=== PATIENT | female | born 1975 ===

== ENCOUNTER 2021-12-07 13:51 | Outpatient (CLI) | payer MEDICAID ==
--- NOTE | 2021-12-08 09:08 | Mammography Report ---
BILATERAL DIGITAL SCREENING MAMMOGRAM 3D/2D: 12/07/2021 CLINICAL: Baseline exam. Routine screening. No prior exams were available for comparison. There are scattered areas of fibroglandular density in both breasts (category b / 25%-50% glandular t issue). No significant masses, calcifications, or other findings are seen in either breast. IMPRESSION: NEGATIVE There is no mammographic evidence of malignancy. A 1 year screening mammogram is recommended. Based on the Tyrer Cuzick model (a risk assessment model) the patients lifetime risk is 6.3% and her 10 year risk is 1.2%. According to the ACR, ACS, and NCCN guidelines, an annual breast MRI exam amie g with mammogram is recommended if the patients lifetime risk is 20% or greater. This exam was interpreted at Station ID: [id number]. NOTE: For mammograms, a report in lay terms will be sent to the patient. Approximately 15% of breast malignancies will not be visualized mammographically. In the management of a palpable breast mass, a negative mammogram must not discourage biopsy of a clinically suspicious lesion. Electronically Signed By: Dong Bustamante M.D. slc/penrad:12/07/2021 17:24:40 ACR BI-RADS Category 1: Negative 3341F PARENCHYMAL PATTERN: (A) - The breast(s) demonstrate(s) scattered fibroglandular densities. BI-RADS CATEGORY: (1) - 1 RECOMMENDATION: (ANNUAL) - Recommend routine annual screening mammography. [id number] 1 year screening LATERALITY: (B)
== END 2021-12-07 13:52 | disposition home or self-care (01) ==
LOC: DI.N 13:51
PROVIDERS: ATTEND Physician Assistant
DX: Z12.31 Encounter for screening mammogram for malignant neoplasm of breast (principal)

== ENCOUNTER 2022-04-12 12:34 | Outpatient (CLI) | payer MEDICAID ==
[2022-04-12 18:43] LABS: CREATININE,URINE 147.6 mg/dL; MICROALBUM/CREATININE RATIO,UR 83.3 ug/mg (<30.0); MICROALBUMIN,URINE 12.3 mg/dL (0-300.0)
== END 2022-04-12 23:59 | disposition home or self-care (01) ==
LOC: LAB 12:34
PROVIDERS: ATTEND Physician Assistant
DX: R80.9 Proteinuria, unspecified (principal)
CPT/HCPCS: 82043; 82570

== ENCOUNTER 2022-06-21 14:00 | Outpatient (CLI) | payer MEDICAID ==
[2022-06-21 17:47] LABS: BASOPHILS # (AUTO) 0.1 10^3/uL (0.0-0.1); BASOPHILS % (AUTO) 0.8 %; EOSINOPHILS # (AUTO) 0.3 10^3/uL (0.0-0.7); EOSINOPHILS % (AUTO) 2.8 %; HCT - HEMATOCRIT 46.5 % (37.0-47.0); HGB - HEMOGLOBIN 14.7 g/dL (12.0-16.0); LYMPHOCYTES # (AUTO) 3.2 10^3/uL (1.5-3.5); LYMPHOCYTES % (AUTO) 33.9 %; MEAN CORPUSCULAR HEMOGLOBIN 28.4 pg (27.0-31.0); MEAN CORPUSCULAR HGB CONC 31.6 g/dL (32.0-36.0); MEAN CORPUSCULAR VOLUME 89.8 fL (81.0-99.0); MEAN PLATELET VOLUME 10.5 fL (7.9-10.8); MONOCYTES # (AUTO) 0.8 10^3/uL (0.0-1.0); MONOCYTES % (AUTO) 8.7 %; NEUTROPHILS # (AUTO) 5.1 10^3/uL (1.5-6.6); NEUTROPHILS % (AUTO) 53.6 %; PLT - PLATELET COUNT 324 10^3/uL (130-450); RED BLOOD COUNT 5.18 10^6/uL (4.20-5.40); RED CELL DISTRIBUTION WIDTH 13.7 % (12.0-15.0); WHITE BLOOD COUNT 9.5 x10^3/uL (4.8-10.8)
[2022-06-21 18:19] LABS: ALBUMIN 3.6 g/dL (3.2-5.5); ALBUMIN/GLOBULIN RATIO 0.9 (1.0-2.2); ALKALINE PHOSPHATASE 77 IU/L (42-121); ALT ALANINE AMINOTRANSFERASE 20 IU/L (10-60); AST ASPARTATE AMINOTRANSFERASE 20 IU/L (10-42); BILIRUBIN,TOTAL 0.7 mg/dL (0.2-1.0); BUN - BLOOD UREA NITROGEN 16 mg/dL (6-20); CARBON DIOXIDE - CO2 27 mmol/L (21-32); CHLORIDE 103 mmol/L (101-111); CHOL/HDL RATIO 3.8 (<4.4); CHOLESTEROL 208 mg/dL; CREATININE 0.9 mg/dL (0.4-1.0); GFR - MDRD 67 (>89); GLUCOSE 107 mg/dL (70-100); HDL CHOLESTEROL 55 mg/dL; LDL CHOLESTEROL,CALCULATED 122 mg/dL; LDL/HDL RATIO 2.2 (<4.4); POTASSIUM 4.2 mmol/L (3.5-5.0); SODIUM 136 mmol/L (135-145); TOTAL PROTEIN 7.5 g/dL (6.7-8.2); TRIGLYCERIDES 155 mg/dL; VLDL CHOLESTEROL 31 mg/dL
[2022-06-21 18:26] LABS: THYROID STIMULATING HORMONE 1.19 uIU/mL (0.34-5.60)
[2022-06-21 18:54] LABS: FOLLICLE STIMULATING HORMONE 13.42 mIU/mL
[2022-06-21 20:41] LABS: ESTIMATED AVERAGE GLUCOSE 126 mg/dL (70-100)
== END 2022-06-21 14:01 | disposition home or self-care (01) ==
LOC: LAB.N 14:00
PROVIDERS: ATTEND Physician Assistant
DX: I10 Essential (primary) hypertension (principal); R60.0 Localized edema; Z13.220 Encounter for screening for lipoid disorders; N92.6 Irregular menstruation, unspecified; R80.9 Proteinuria, unspecified
CPT/HCPCS: 36415; 80053; 80061; 82043; 82570; 83001; 83036; 83721; 84443; 85025

== ENCOUNTER 2022-06-23 08:00 | Outpatient (CLI) | payer MEDICAID ==
[2022-06-23 18:19] LABS: CREATININE,URINE 115.8 mg/dL; MICROALBUM/CREATININE RATIO,UR 69.9 ug/mg (<30.0); MICROALBUMIN,URINE 8.1 mg/dL (0-300.0)
== END 2022-06-23 23:59 | disposition home or self-care (01) ==
LOC: LAB.R 08:00
PROVIDERS: ATTEND Physician Assistant
DX: R80.9 Proteinuria, unspecified (principal)
CPT/HCPCS: 82043; 82570

== ENCOUNTER 2022-07-05 21:49 | Outpatient (CLI) | payer MEDICAID ==
--- NOTE | 2022-07-06 21:21 | Ultrasound Report ---
PROCEDURE: Retroperitoneal INDICATIONS: PROTEINURIA TECHNIQUE: Real-time scanning was performed of the retroperitoneal organs, with image documentation. COMPARISON: None. FINDINGS: Kidneys: Kidneys are normal in size. Right kidney measures 10.3 cm long; left kidney measures 11.0 cm long. Right renal cortical thickness is 0.9 cm; left renal cortical thickness is 1.6 cm. No neph rolithiasis. Mild appearance of increased renal cortical echogenicity within the kidneys bilaterally. Minimal prominence of the renal collecting system bilaterally. Bladder: Pre-void bladder volume is 106 mL. Post-void residual is 0 mL. Pre-void images demonstrat e no intraluminal masses or stones. On pre-void images, mary ann ureteral jets are noted with color Dopp ler interrogation. (Of note, ureteral jets may not be detectable in up to 25% of cases due to insuff icient differences in specific gravity between ureteral and bladder urine). Miscellaneous: No free abdominal fluid. IMPRESSION: Echogenic renal echotexture which is overall nonspecific but can be seen with medical renal disease. Mild prominence of the renal collecting systems bilaterally without visualized source of obstruction. Reviewed by: Chen Christianson MD on 07/06/2022 9:19 PM PDT Approved by: Chen Christianson MD on 07/06/2022 9:19 PM PDT Station ID: [id number]
== END 2022-07-05 21:50 | disposition home or self-care (01) ==
LOC: DI 21:49
PROVIDERS: ATTEND Physician Assistant
DX: R80.9 Proteinuria, unspecified (principal)

== ENCOUNTER 2022-07-27 10:55 | Outpatient (CLI) | payer MEDICAID ==
--- NOTE | 2022-07-27 16:44 | Ultrasound Report ---
PROCEDURE: Duplex Lwr Ext Arterial Bilat INDICATIONS: BILATERAL LEG EDEMA TECHNIQUE: Color and pulse Doppler interrogation was performed of both lower extremity arterial systems, with im age documentation. COMPARISON: None FINDINGS: Right lower extremity: Common femoral artery: 120 cm/sec, with triphasic flow. Deep femoral artery: 63 cm/sec, with triphasic flow. Proximal superficial femoral artery: 117 cm/sec, with triphasic flow. Mid superficial femoral artery: 125 cm/sec, with triphasic flow. Distal superficial femoral artery: 129 cm/sec, with triphasic flow. Popliteal artery: 94 cm/sec, with triphasic flow. Posterior tibial artery: 21 cm/sec, with triphasic flow. Anterior tibial artery/dorsalis pedis: 72 cm/sec, with triphasic flow. Brar-scale imaging description: Mild diffuse plaque Left lower extremity: Common femoral artery: 181 cm/sec, with triphasic flow. Deep femoral artery: 55 cm/sec, with triphasic flow. Proximal superficial femoral artery: 145 cm/sec, with triphasic flow. Mid superficial femoral artery: 138 cm/sec, with triphasic flow. Distal superficial femoral artery: 81 cm/sec, with triphasic flow. Popliteal artery: 111 cm/sec, with triphasic flow. Posterior tibial artery: 94 cm/sec, with triphasic flow. Anterior tibial artery/dorsalis pedis: 92 cm/sec, with triphasic flow. Brar-scale imaging description: Mild diffuse plaque IMPRESSION: No evidence of arterial insufficiency to the bilateral lower extremities. Reviewed by: Renae Clinton MD on 07/27/2022 4:42 PM PDT Approved by: Renae Clinton MD on 07/27/2022 4:42 PM PDT Station ID: [id number]
--- NOTE | 2022-07-27 16:44 | Ultrasound Report ---
PROCEDURE: Duplex Ext Veins Bilateral INDICATIONS: FREDDY Ashton TECHNIQUE: Real-time imaging, as well as color and pulse Doppler interrogation, were performed of the deep veins of both legs from the inguinal ligament to the popliteal fossa. COMPARISON: None FINDINGS: The deep veins are normally compressible, and free of intraluminal thrombus. Color and pu lse Doppler demonstrate normal phasic intravascular flow. There is normal augmentation response to d istal compression maneuver. IMPRESSION: No evidence of bilateral lower extremity DVT. Reviewed by: Renae Clinton MD on 07/27/2022 4:43 PM PDT Approved by: Renae Clinton MD on 07/27/2022 4:43 PM PDT Station ID: [id number]
== END 2022-07-27 10:56 | disposition home or self-care (01) ==
LOC: DI 10:55
PROVIDERS: ATTEND Physician Assistant
DX: R60.0 Localized edema (principal)
CPT/HCPCS: 93925; 93970

== ENCOUNTER 2022-07-29 05:37 | Emergency (ER) | payer MEDICAID ==
[2022-07-29 06:33] VITALS: BP 164/90
--- NOTE | 2022-07-29 07:17 | ED Physician Documentation ---
PD HPI BACK PAIN - Stated complaint Stated Complaint: BACK PX/MED REFILL - Chief complaint Chief Complaint: Back Pain - History obtained from History obtained from: Patient - History of Present Illness Timing - onset: How many days ago (2) Timing - duration: Days (2) Timing - details: Gradual onset, Still present (no noted injury. Has been doing some lifting and bending. Onset of right low back pain and tightness. no fall nor abrupt pain. No radiation to legs. No numbness nor weakness.) Review of Systems Constitutional: denies: Fever, Chills GI: denies: Abdominal Pain, Abdominal Swelling, Vomiting, Diarrhea Skin: denies: Rash, Lesions Musculoskeletal: reports: Back pain. 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: LEEP (Cervical surgery) - Present Medications Home Medications: Ambulatory Orders Medication Instructions Recorded Confirmed Amlodipine Besylate [Norvasc] 10 mg ORAL DAILY 07/18/22 07/18/22 Losartan [Cozaar] 50 mg PO DAILY 07/18/22 07/18/22 Acetaminophen [Acetaminophen Extra 500 mg PO QID PRN #50 tablet 07/29/22 Strength] dexAMETHasone [Decadron] 4 mg PO DAILY #5 tablet 07/29/22 methocarbamoL [Robaxin] 500 mg PO Q6H PRN #30 tablet 07/29/22 - Allergies Allergies/Adverse Reactions: Allergies Allergy/AdvReac Type Severity Reaction Status Date / Time acetaminophen [From Vicodin] AdvReac Mild Nausea Verified 07/18/22 13:40 hydrocodone [From Vicodin] AdvReac Mild Nausea Verified 07/18/22 13:40 PD ED PE NORMAL - Vitals Vital signs reviewed: Yes - General General: Alert and oriented X 3, No acute distress, Well developed/nourished - Cardiac Cardiac: RRR, No murmur - Respiratory Respiratory: Clear bilaterally - Abdomen Abdomen: Soft, Non tender - Back Back: No CVA TTP, No spinal TTP, Other (muscular tender right lower back mainly. ) - Derm Derm: Normal color, Warm and dry, No rash - Neuro Neuro: No motor deficit, No sensory deficit, Other (normal patellar reflexes. ) Results - Vitals Vitals: Vital Signs - 24 hr 07/29/22 06:26 Temperature 36.4 C L Heart Rate 95 Respiratory 16 Rate Blood Pressure 164/90 H O2 Saturation 99 Oxygen O2 Source Room air PD Medical Decision Making - ED course Complexity details: reviewed old records, considered differential (she is concerned that her BP is high in triage. Could not find her usual meds at home. Otherwise here for back pain. No red flags on history/exam to suggest need for urgent testing. ), d/w patient Departure - Departure Disposition: Home, Self Care Clinical Impression: Hypertension, Acute low back pain Condition: Stable Record reviewed to determine appropriate education?: Yes Instructions: ED Low Back Pain Injury Follow-Up: Gisele Molina PA [Provider Admit Priv/Credential] - Prescriptions: Acetaminophen [Acetaminophen Extra Strength] 500 mg PO QID PRN #50 tablet PRN Reason: Pain dexAMETHasone [Decadron] 4 mg PO DAILY #5 tablet methocarbamoL [Robaxin] 500 mg PO Q6H PRN #30 tablet PRN Reason: Spasms Comments: Low back pain is relatively common in we will also commonly go away with short- term treatments so we tend not to do too much work-up unless it persists. Will commonly treat with combination of anti-inflammatories and muscle relaxants and add in Tylenol. You can also use heat stretching chiropractic and massage. I sent prescriptions to [facility] for Decadron steroid anti-inflammatory to reduce NSAIDs for now. Once done with the Decadron you can add some Aleve or ibuprofen at lower doses. For now add Robaxin muscle relaxant and then acetaminophen 4 times daily to help with the pain as well. I sent these prescriptions to [facility] pharmacy. By your pharmacy log, your losartan dose is 50 mg and amlodipine is 10 mg. Call the pharmacy for refills if you are unable to find your medications at home. Discharge Date/Time: 07/29/22 08:07
[2022-07-29] MEDS ORDERED: methocarbamoL 500 MG TABLET PO STA (07:43)
[2022-07-29] MEDS ORDERED: DEXAMETHASONE 10 MG/ML VIAL PO STA (07:43)
[2022-07-29] MEDS ORDERED: CHERRY SYRUP 10 ML UDC PO ONE (07:43)
[2022-07-29] MEDS ORDERED: LOSARTAN 50 MG TABLET PO STA (07:43)
[2022-07-29] MEDS ORDERED: ACETAMINOPHEN 325 MG TABLET PO STA (07:43)
== END 2022-07-29 08:07 | disposition home or self-care (01) ==
LOC: ED 05:37
DX: M54.50 Low back pain, unspecified (principal); I10 Essential (primary) hypertension; Z79.899 Other long term (current) drug therapy
CPT/HCPCS: 99283; A9270

== ENCOUNTER 2022-12-19 08:00 | Outpatient (CLI) | payer MEDICAID | END 2022-12-19 23:59 | disposition home or self-care (01) | LOC: LAB.N 08:00 | PROVIDERS: ATTEND Registered Nurse | DX: L03.90 Cellulitis, unspecified (principal); B07.9 Viral wart, unspecified | CPT/HCPCS: 87070; 87205 ==

== ENCOUNTER 2022-12-19 08:00 | Outpatient (CLI) | payer MEDICAID | END 2022-12-19 23:59 | disposition home or self-care (01) | LOC: LAB.N 08:00 | PROVIDERS: ATTEND Registered Nurse | DX: L03.90 Cellulitis, unspecified (principal); B07.9 Viral wart, unspecified | CPT/HCPCS: 87070; 87205; 87252 ==

== ENCOUNTER 2023-02-10 14:54 | Outpatient (CLI) | payer MEDICAID ==
[2023-02-11 19:44] LABS: CREATININE,URINE 109.5 mg/dL; MICROALBUM/CREATININE RATIO,UR 166.2 ug/mg (<30.0); MICROALBUMIN,URINE 18.2 mg/dL; PROTEIN/CREATININE RATIO,URINE 0.3 (<=0.2)
== END 2023-02-10 14:55 | disposition home or self-care (01) ==
LOC: LAB.N 14:54
PROVIDERS: ATTEND Internal Medicine Nephrology
DX: R80.9 Proteinuria, unspecified (principal)
CPT/HCPCS: 82043; 82570; 84156

== ENCOUNTER 2023-02-28 08:00 | Outpatient (CLI) | payer MEDICAID ==
[2023-02-28 18:30] LABS: BILIRUBIN,URINE NEGATIVE (NEGATIVE); GLUCOSE, URINE (UA) NEGATIVE (NEGATIVE); KETONES,URINE (UA) NEGATIVE (NEGATIVE); LEUKOCYTE ESTERASE, URINE NEGATIVE (NEGATIVE); NITRITE,URINE NEGATIVE (NEGATIVE); OCCULT BLOOD,URINE LARGE (NEGATIVE); PROTEIN,URINE TRACE mg/dL (NEGATIVE); UROBILINOGEN,URINE 0.2 (NORMAL) E.U./dL (NORMAL)
[2023-02-28 18:40] LABS: CLARITY,URINE HAZY (CLEAR)
[2023-02-28 18:57] LABS: BACTERIA,URINE Few /HPF (None Seen); CRYSTALS,URINE 26-50 Ca Oxalate /LPF; SQUAMOUS EPITHELIAL CELL,UR MOD Squamous (<= Few)
== END 2023-02-28 23:59 | disposition home or self-care (01) ==
LOC: LAB 08:00
PROVIDERS: ATTEND Physician Assistant
DX: R35.0 Frequency of micturition (principal)
CPT/HCPCS: 81001; 87086

== ENCOUNTER 2023-04-26 16:07 | Outpatient (CLI) | payer MEDICAID ==
[2023-04-26 17:41] LABS: BASOPHILS % (AUTO) 0.6 %; EOSINOPHILS # (AUTO) 0.2 10^3/uL (0.0-0.7); EOSINOPHILS % (AUTO) 3.5 %; HCT - HEMATOCRIT 48.7 % (37.0-47.0); HGB - HEMOGLOBIN 15.2 g/dL (12.0-16.0); LYMPHOCYTES # (AUTO) 2.5 10^3/uL (1.5-3.5); LYMPHOCYTES % (AUTO) 38.2 %; MEAN CORPUSCULAR HEMOGLOBIN 28.5 pg (27.0-31.0); MEAN CORPUSCULAR HGB CONC 31.2 g/dL (32.0-36.0); MEAN CORPUSCULAR VOLUME 91.4 fL (81.0-99.0); MEAN PLATELET VOLUME 10.5 fL (7.9-10.8); MONOCYTES # (AUTO) 1.1 10^3/uL (0.0-1.0); NEUTROPHILS # (AUTO) 2.7 10^3/uL (1.5-6.6); NEUTROPHILS % (AUTO) 41.4 %; PLT - PLATELET COUNT 280 10^3/uL (130-450); RED BLOOD COUNT 5.33 10^6/uL (4.20-5.40); RED CELL DISTRIBUTION WIDTH 13.6 % (12.0-15.0); WHITE BLOOD COUNT 6.6 x10^3/uL (4.8-10.8)
[2023-04-26 18:07] LABS: ALBUMIN 3.9 g/dL (3.2-5.5); ALBUMIN/GLOBULIN RATIO 1.1 (1.0-2.2); ALKALINE PHOSPHATASE 58 IU/L (42-121); ALT ALANINE AMINOTRANSFERASE 15 IU/L (10-60); AST ASPARTATE AMINOTRANSFERASE 19 IU/L (10-42); BILIRUBIN,TOTAL 0.4 mg/dL (0.2-1.0); BUN - BLOOD UREA NITROGEN 12 mg/dL (6-20); CALCIUM 9.3 mg/dL (8.5-10.3); CARBON DIOXIDE - CO2 30 mmol/L (21-32); CHLORIDE 102 mmol/L (101-111); CHOL/HDL RATIO 3.3 (<4.4); CHOLESTEROL 154 mg/dL; GFR - MDRD 59 (>89); GLUCOSE 96 mg/dL (74-104); HDL CHOLESTEROL 47 mg/dL; LDL CHOLESTEROL,CALCULATED 94 mg/dL; SODIUM 136 mmol/L (135-145); TOTAL PROTEIN 7.3 g/dL (6.4-8.9); TRIGLYCERIDES 67 mg/dL (48-352); VLDL CHOLESTEROL 13 mg/dL
[2023-04-26 21:38] LABS: BILIRUBIN,URINE NEGATIVE (NEGATIVE); GLUCOSE, URINE (UA) NEGATIVE (NEGATIVE); KETONES,URINE (UA) NEGATIVE (NEGATIVE); LEUKOCYTE ESTERASE, URINE NEGATIVE (NEGATIVE); NITRITE,URINE NEGATIVE (NEGATIVE); OCCULT BLOOD,URINE MODERATE (NEGATIVE); PROTEIN,URINE NEGATIVE (NEGATIVE); UROBILINOGEN,URINE 0.2 (NORMAL) E.U./dL (NORMAL)
[2023-04-26 22:07] LABS: BACTERIA,URINE None Seen /HPF (None Seen); CLARITY,URINE CLEAR (CLEAR); SQUAMOUS EPITHELIAL CELL,UR MOD Squamous (<= Few); WBC,URINE 0-3 /HPF (0-5)
[2023-04-27 00:49] LABS: ESTIMATED AVERAGE GLUCOSE 128 mg/dL (70-100); HEMOGLOBIN A1c% 6.1 % (4.27-6.07)
== END 2023-04-26 16:08 | disposition home or self-care (01) ==
LOC: LAB.N 16:07
PROVIDERS: ATTEND Physician Assistant
DX: I10 Essential (primary) hypertension (principal); R35.0 Frequency of micturition; R73.01 Impaired fasting glucose
CPT/HCPCS: 36415; 80053; 80061; 81001; 83036; 83721; 84443; 85025; 87086

== ENCOUNTER 2023-07-13 09:41 | Day surgery (SDC) | payer MEDICAID ==
[2023-07-13] MEDS: LACTATED RINGERS 1,000 ML IV ONE (09:59)
[2023-07-13 10:01] LABS: HCG UR QUAL NEGATIVE
[2023-07-13 10:45] LABS: BASOPHILS # (AUTO) 0.1 10^3/uL (0.0-0.1); EOSINOPHILS # (AUTO) 0.3 10^3/uL (0.0-0.7); EOSINOPHILS % (AUTO) 3.1 %; HCT - HEMATOCRIT 43.3 % (37.0-47.0); HGB - HEMOGLOBIN 13.6 g/dL (12.0-16.0); LYMPHOCYTES # (AUTO) 3.1 10^3/uL (1.5-3.5); LYMPHOCYTES % (AUTO) 34.8 %; MEAN CORPUSCULAR HEMOGLOBIN 28.5 pg (27.0-31.0); MEAN CORPUSCULAR HGB CONC 31.4 g/dL (32.0-36.0); MEAN CORPUSCULAR VOLUME 90.8 fL (81.0-99.0); MEAN PLATELET VOLUME 10.1 fL (7.9-10.8); MONOCYTES # (AUTO) 0.8 10^3/uL (0.0-1.0); MONOCYTES % (AUTO) 9.2 %; NEUTROPHILS # (AUTO) 4.6 10^3/uL (1.5-6.6); NEUTROPHILS % (AUTO) 51.7 %; PLT - PLATELET COUNT 281 10^3/uL (130-450); RED BLOOD COUNT 4.77 10^6/uL (4.20-5.40); RED CELL DISTRIBUTION WIDTH 13.4 % (12.0-15.0); WHITE BLOOD COUNT 8.9 x10^3/uL (4.8-10.8)
--- NOTE | 2023-07-13 11:06 | ANESTHESIA ---
Pre-Anesthesia VS, & Labs - Diagnosis High grade squamous epithelial CIN3 - Procedure LEEP Vital Signs: Temp Pulse Resp BP Pulse Ox O2 Flow Rate 36.7 C 84 18 160/98 H 97 07/13/23 10:08 07/13/23 10:08 07/13/23 10:08 07/13/23 10:08 07/13/23 10:08 Height: 5 ft 4 in Weight (kg): 100.3 kg Body Mass Index: 37.9 BMI Classification: Obese - NPO >8 hours - Is Patient ?: No - Lab Results Current Lab Results: Laboratory Tests 07/13/23 10:33: WBC 8.9, RBC 4.77, Hgb 13.6, Hct 43.3, MCV 90.8, MCH 28.5, MCHC 31.4 L, RDW 13.4, Plt Count 281, MPV 10.1, Neut # (Auto) 4.6, Lymph # (Auto) 3.1, Charlton # (Auto) 0.8, Eos # (Auto) 0.3, Baso # (Auto) 0.1, Absolute Nucleated RBC 0.00, Nucleated RBC % 0.0 Lab results reviewed: Yes Fish Bones: 07/13/23 10:33 Home Medications and Allergies Home Medications: Ambulatory Orders Albuterol Sulfate [Proair Digihaler] 90 mcg IH Q6HR PRN 07/04/23 Omeprazole 20 mg PO DAILY 07/04/23 Spironolactone [Aldactone] 25 mg PO DAILY 07/04/23 Venlafaxine ER [Effexor ER] 75 mg PO DAILY 07/04/23 Losartan [Cozaar] 50 mg PO DAILY 07/18/22 Albuterol Sulfate [Proair Digihaler] 90 mcg IH Q6HR PRN 07/04/23 Omeprazole 20 mg PO DAILY 07/04/23 Spironolactone [Aldactone] 25 mg PO DAILY 07/04/23 Venlafaxine ER [Effexor ER] 75 mg PO DAILY 07/04/23 Allergies/Adverse Reactions: Allergies Allergy/AdvReac Type Severity Reaction Status Date / Time hydrocodone [From Vicodin] AdvReac Mild Nausea Verified 07/13/23 10:15 Anes History & Medical History - Anesthetic History Anesthesia Complications: reports: No previous complications Family history of Anesthesia Complications: Denies Family history of Malignant Hyperthermia: Denies - Medical History Cardiovascular: reports: Hypertension Pulmonary: reports: Asthma, Sleep apnea Gastrointestinal: reports: GERD, Other Urinary: reports: Frequency Musculoskeletal: reports: Osteoarthritis, Chronic back pain Endocrine/Autoimmune: reports: None Skin: reports: None Smoking Status: Current every day smoker History of Cancer?: No - Surgical History General: reports: Appendectomy Gynecologic: reports: LEEP (Cervical surgery) Exam General: Alert, Oriented x3, Cooperative Dental: WNL Mouth Openin Fingerbreadth Neck Mobility: Reduced (stiff to left) Mallampati classification: II Thyromental Distance: 4-6 cm Respiratory: Rhonchi (expiritory L mid and lower lobes), Other (always has productive cough, worse with allergies right now, 98% on room air) Cardiovascular: Regular rate Neurological: Normal speech Mental/Cognitive Status: Alert/Oriented X3, Normal for patient Plan Anesthesia Type: General Consent for Procedure(s) Verified and Reviewed: Yes Code Status: Attempt Resuscitation ASA classification: 2-Mild systemic disease Is this case an emergency?: No
[2023-07-13] MEDS ORDERED: POTASSIUM IODIDE/IODINE 14 ML SOLUTION ONE (11:48)
[2023-07-13] MEDS ORDERED: BUPIVACAINE 0.5%-EPI 1:200000 PF 30 ML VIAL ONE (11:48)
[2023-07-13] MEDS ORDERED: PROPOFOL 500 MG/50 ML 500 MG/50 ML VIAL ONE (11:55)
[2023-07-13] MEDS ORDERED: fentaNYL 100 MCG/2 ML VIAL ONE (11:56)
[2023-07-13] MEDS ORDERED: MIDAZOLAM 2 MG/2 ML VIAL ONE (11:56)
[2023-07-13] MEDS ORDERED: LIDOCAINE-MPF 2% 5 ML VIAL ONE (11:56)
--- NOTE | 2023-07-13 12:25 | HISTORY & PHYSICAL EXAMINATION ---
History of Present Illness - History of Present Illness HPI Comment/Other: HPI: patient is a 48-year-old menopausal female presenting for LEEP 4C and three at 9 o'clock in [facility] at five talking to God. She has no new questions since I visit. All other symptoms reviewed and were negative except per HPI. PMH chronic low back pain hypertension abnormal Pap smear left meniscal tear PSH laparoscopic appendectomy SH currently every day smoker. One half pack per day. Denies alcohol and drug use Family History mother: coronary disease, lung disease father: coronary disease, CVA, lung cancer maternal aunt: breast cancer Allergies [place]: nausea Zoloft: worsened SI JASMINA inhibitor: cough Medications metformin 500 mg twice a day omeprazole 20 mg once a day venlafaxine 75 mg daily albuterol PRN losartan 100 mg once a day spironolactone 25 mg daily method carbamide 500 mg PRN Physical exam: General: Alert, oriented, no acute distress Head: Normal cephalic atraumatic Eyes: PERRLA, extraocular motions intact. Respiratory: Normal rate of respiration. No accessory muscle use, normal respiratory effort. Cardiovascular: Regular rate and rhythm Abdomen: Nontender, nondistended Extremities: Normal range of motion Neuro: Oriented x3. Normal movements Psych: Appropriate mood and affect. Normal judgment and insight Assessment and plan RASHARD 3: discussed the risk and benefits cultures of the leap in the OR. Patient has no questions and like to proceed. History - Past Medical History Cardiovascular: reports: Hypertension Respiratory: reports: Asthma, Sleep apnea Endocrine/Autoimmune: reports: None GI: reports: GERD, Other : reports: Frequency HEENT: reports: Other Psych: reports: Depression, Anxiety, Panic attacks, Claustrophobia Musculoskeletal: reports: Osteoarthritis, Chronic back pain Derm: reports: None MRSA Hx?: No - Past Surgical History General: reports: Appendectomy /CRYSTALIZER TENDER: reports: LEEP (Cervical surgery) Meds/Allgy - Home Medications Home Medications: Ambulatory Orders Medication Instructions Recorded Confirmed Losartan [Cozaar] 50 mg PO DAILY 07/18/22 07/13/23 Acetaminophen [Acetaminophen Extra 500 mg PO QID PRN #50 tablet 07/29/22 Strength] methocarbamoL [Robaxin] 500 mg PO Q6H PRN #30 tablet 07/29/22 07/13/23 Albuterol Sulfate [Proair 90 mcg IH Q6HR PRN 07/04/23 07/04/23 Digihaler] Omeprazole 20 mg PO DAILY 07/04/23 07/13/23 Spironolactone [Aldactone] 25 mg PO DAILY 07/04/23 07/13/23 Venlafaxine ER [Effexor ER] 75 mg PO DAILY 07/04/23 07/13/23 - Allergies Allergies/Adverse Reactions: Allergies Allergy/AdvReac Type Severity Reaction Status Date / Time hydrocodone [From Vicodin] AdvReac Mild Nausea Verified 07/13/23 10:15 Exam - Vital Signs Vital Signs: Vital Signs x48h Temp Pulse Resp BP Pulse Ox 07/13/23 10:08 98.1 F 84 18 160/98 H 97 Conclusion/Plan - Lab Results Lab results reviewed: Yes Fish Bones: 07/13/23 10:33
[2023-07-13] MEDS: BUPIVACAINE 0.5%-EPI 1:200000 PF 30 ML VIAL SUBQ ONE (12:56)
[2023-07-13] MEDS: POTASSIUM IODIDE/IODINE 14 ML SOLUTION TOP ONE (12:56)
[2023-07-13] MEDS: FERRIC SUBSULFATE 8 ML SOLUTION (FOR OR) TOP ONE (13:03)
[2023-07-13] MEDS ORDERED: oxyCODONE 5 MG TABLET PO PRN (13:06)
--- NOTE | 2023-07-13 13:09 | OPERATIVE REPORT ---
Operative Report - General Procedure Date: 07/13/23 Planned Procedure: LEEP cervical conization with endocervical curettage Pre-Op Diagnosis: RASHARD-3 Procedure Performed: LEEP cervical conization with endocervical curettage Post Op Diagnosis: RASHARD-3 - Procedure Note Primary Surgeon: Cheikh Cabrera MD Anesthesia Provider: Karyn Green CRNA Anesthesia Technique: General LMA Pathology: Cervical biopsies: 1.12:00 to 2:00 2. 2:00 to 9:00 3. 9:00 to 12:00 4. Endocervical curettage IV Fluids (mL): 800 Estimated Blood Loss (mL): 1 Urine Output (mL): 200 Complications: none - Other Other Information/Narrative: Prior to the procedure, patient was counseled the risk, benefits, alternatives to LEEP conization. She was taken to the operating room and after general anesthesia was obtained, she was placed in dorsolithotomy position. Timeout was taken. She was prepped and draped in usual sterile fashion. Sterile, coated speculum was placed in the vagina with good visualization of the cervix. A cervical block was performed. Lugol's solution was used to highlight the transformation zone abnormal areas. There do not appear to be substantial abnormal areas outside of the transformation zone. Using an 18 mm curved electrocautery wire, a conization was completed. This did, and 3 specimens including the first from 12:00 to 2:00, the second from 2:00 to 9:00, and the last from 9:00 to 12:00. Patient then had an endocervical curettage performed and this was placed in formalin. We did note that the IUD strings were cut approximately 1 inch in length. Observing the tissue bed, it was mostly hemostatic, but had a small area of light bleeding at the posterior aspect of the serosal border. Monsel solution was applied and hemostasis was achieved. Counts were correct. Patient tolerated the procedure well and seeing the PACU in good condition.
--- NOTE | 2023-07-13 13:29 | ANESTHESIA POST OP EVALUATION ---
Anesthesia Post Eval - Post Anesthesia Eval Vitals: Last Vital Signs Temp 36.3 C L 07/13/23 13:25 Pulse 72 07/13/23 13:25 Resp 19 07/13/23 13:25 BP 138/76 H 07/13/23 13:25 Pulse Ox 100 07/13/23 13:25 O2 Flow Rate CV Function Including HR & BP: Stable Pain Control: Satisfactory Nausea & Vomiting: Negative Mental Status: Baseline Respiratory Status: Airway Patent Hydration Status: Satisfactory Anesthesia Complications: None
[2023-07-13] MEDS: LACTATED RINGERS 200 ML IV ONE (14:11)
[2023-07-13] MEDS ORDERED: MORPHINE 2 MG/ML CARPUJECT IVP PRN (14:21)
[2023-07-13] MEDS ORDERED: ePHEDrine 50 MG/ML VIAL IVP PRN (14:21)
[2023-07-13] MEDS ORDERED: ATROPINE ABBOJECT 1 MG/10 ML SYRINGE IVP PRN (14:21)
[2023-07-13] MEDS ORDERED: NALOXONE 0.4 MG/ML VIAL IVP PRN (14:21)
[2023-07-13] MEDS ORDERED: HYDROmorphone 0.5 MG/0.5 ML SYRINGE IVP PRN (14:21)
[2023-07-13] MEDS ORDERED: METOCLOPRAMIDE 10 MG/2 ML VIAL IVP PRN (14:21)
[2023-07-13] MEDS ORDERED: ONDANSETRON 4 MG/2 ML VIAL IVP PRN (14:21)
[2023-07-13] MEDS ORDERED: fentaNYL 100 MCG/2 ML VIAL IVP PRN (14:21)
[2023-07-13] MEDS ORDERED: LACTATED RINGERS 1,000 ML IV SCH (15:00)
[2023-07-13 15:06] VITALS: BP 148/77; O2SAT 96
[2023-07-13] MEDS ORDERED: IBUPROFEN 600 MG TABLET PO SCH (18:00)
== END 2023-07-13 09:42 | disposition home or self-care (01) ==
LOC: SDS 09:41
PROVIDERS: ATTEND Obstetrics & Gynecology
PROC: 0UBC7ZX Excision of Cervix, Via Natural or Artificial Opening, Diagnostic (ICD-10-PCS; principal; 2023-07-13 10:00)
DX: N87.1 Moderate cervical dysplasia (principal); E66.9 Obesity, unspecified; Z68.37 Body mass index [BMI] 37.0-37.9, adult; I10 Essential (primary) hypertension; F17.210 Nicotine dependence, cigarettes, uncomplicated; J45.909 Unspecified asthma, uncomplicated; G47.30 Sleep apnea, unspecified
CPT/HCPCS: 57522; 81025; 85025; A9270; J7120

== ENCOUNTER 2023-07-21 14:30 | Outpatient (CLI) | payer MEDICAID ==
--- NOTE | 2023-07-21 17:14 | XRAY Report ---
PROCEDURE: Thoracic Spine 3V INDICATIONS: BACK PAIN, LEFT THORACIC REGION TECHNIQUE: 3 views of the thoracic spine were acquired. COMPARISON: None. FINDINGS: Bones: There are overall mild degenerative changes. Even on swimmer's view, the cervical thoracic miracle ction is not well seen. Within this limitation, there is no acute appearing vertebral body height los s. There is mild rightward spinal curvature in the midthoracic spine. No traumatic subluxation. Soft tissues: No suspicious calcifications. IMPRESSION: Mild degenerative changes. No acute radiographic abnormality. Slight rightward spinal curvature. If t here is high concern for further derangement, consider MRI evaluation. Reviewed by: Schuyler Oviedo MD on 07/21/2023 5:13 PM PDT Approved by: Schuyler Oviedo MD on 07/21/2023 5:13 PM PDT Station ID: [id number]
== END 2023-07-21 14:31 | disposition home or self-care (01) ==
LOC: DI.N 14:30
PROVIDERS: ATTEND Physician Assistant
DX: M47.814 Spondylosis without myelopathy or radiculopathy, thoracic region (principal)

== ENCOUNTER 2023-09-18 16:56 | Outpatient (CLI) | payer MEDICAID ==
--- NOTE | 2023-09-19 15:35 | Ultrasound Report ---
PROCEDURE: Pelvic w/Transvaginal INDICATIONS: CONTRACEPTION MANAGEMENT TECHNIQUE: Transabdominal/transvaginal ultrasound of the pelvis was obtained. Endovaginal scanning wa s necessary due to incomplete visualization of the adnexal and endometrial structures by transabdomin al scanning. COMPARISON: None. FINDINGS: Uterine size: Uterus measures 4.7 x 2.9 x 4.0 cm, and is anteverted. Myometrium: The myometrium is homogeneous. Endometrium: The endometrium measures 3 mm in combined thickness. Intrauterine device is in good pos ition in the endometrial canal Right ovary: The right ovary measures 1.4 x 0.9 x 1.1 cm. Calculated ovarian volume 0.75 cc. Left ovary: The left ovary measures 1.4 x 0.9 x 1.0 cm. Calculated ovarian volume 0.68 cc. Other: No pathologic free abdominal or pelvic fluid. IMPRESSION: Unremarkable ultrasound of the pelvis. Intrauterine device in good position Reviewed by: Quinn James MD on 09/19/2023 2:34 PM HITESH Approved by: Quinn James MD on 09/19/2023 2:34 PM AKDT Station ID: [id number]
== END 2023-09-18 16:57 | disposition home or self-care (01) ==
LOC: DI 16:56
PROVIDERS: ATTEND Obstetrics & Gynecology
DX: Z30.9 Encounter for contraceptive management, unspecified (principal)

== ENCOUNTER 2023-10-24 14:25 | Outpatient (CLI) | payer MEDICAID ==
--- NOTE | 2023-10-26 15:43 | XRAY Report ---
PROCEDURE: Hips w/Pelvis 2-3V BL INDICATIONS: HIP PAIN TECHNIQUE: 2 view(s) of the hip were acquired. COMPARISON: None FINDINGS: Bones: No fractures or dislocations. No suspicious bony lesions. The visualized pelvic ring appear s intact. Moderate bilateral hip joint space narrowing Soft tissues: No suspicious soft tissue calcifications or masses. Intrauterine device is present. IMPRESSION: Moderate bilateral hip joint space narrowing without osseous remodeling Reviewed by: Quinn James MD on 10/26/2023 2:42 PM AKDT Approved by: Quinn James MD on 10/26/2023 2:42 PM AKDT Station ID: [id number]
== END 2023-10-24 14:26 | disposition home or self-care (01) ==
LOC: DI.N 14:25
PROVIDERS: ATTEND Physician Assistant
DX: M25.852 Other specified joint disorders, left hip (principal); M25.851 Other specified joint disorders, right hip; M25.551 Pain in right hip